=== PATIENT | male | born 2000 | race Caucasian/White ===

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

== ENCOUNTER 2022-10-13 11:16 | Emergency (ER) | payer BC, OTHER ==
[~2022-10-13] VITALS: Wt 68.0 kg
== END 2022-10-13 12:37 | disposition home or self-care (01) ==
LOC: ED 11:16
DX: J06.9 Acute upper respiratory infection, unspecified (principal); Z20.822 Contact with and (suspected) exposure to COVID-19